=== PATIENT | female | born 1940 | race Caucasian/White ===

== ENCOUNTER 2023-02-13 06:10 | Day surgery (SDC) | payer MEDICARE ==
[2023-02-08 15:24] VITALS: BMI 23.8
[~2023-02-13 06:10] MED LIST: EPINEPHrine 0.3 MG in Ophthalmic Irrigation Solution 500 ML IRR SCH
[2023-02-13] MEDS ORDERED: EPINEPHrine 0.3 MG in Ophthalmic Irrigation Solution 500 ML IRR SCH (06:30)
[2023-02-13] MEDS ORDERED: Midazolam HCl 2 mg/2 ml Vial ONE (06:35)
[2023-02-13] MEDS ORDERED: fentaNYL 50 mcg/mL 1 mL Vial ONE ×2 (06:35)
[2023-02-13] MEDS ORDERED: PROPOFOL 20 ML ONE (06:35)
[2023-02-13] MEDS ORDERED: Bupivacaine 0.75% 10 ML VIAL ONE (07:45)
[2023-02-13] MEDS ORDERED: Indocyanine Green 25 MG/10 ML VIAL ONE (07:45)
[2023-02-13] MEDS ORDERED: Lidocaine 1% PF 5 ML VIAL ONE (07:45)
[2023-02-13] MEDS ORDERED: CEFAZOLIN 1 GM VIAL ONE (07:45)
[2023-02-13] MEDS ORDERED: PROPOFOL 200 MG/20 ML VIAL ONE (07:45)
[2023-02-13] MEDS ORDERED: Maxitrol 0.1% Opth Oint 3.5 GM TUBE ONE (07:45)
[2023-02-13] MEDS ORDERED: Triamcinolone 40 MG/ML VIAL ONE (07:45)
[2023-02-13] MEDS ORDERED: Lidocaine 4% PF 5 ML AMP ONE (07:45)
== END 2023-02-13 11:43 | disposition home or self-care (01) ==
LOC: SDC 06:10
PROVIDERS: ATTEND Ophthalmology Retina Specialist
PROC: 08T53ZZ Resection of Left Vitreous, Percutaneous Approach (ICD-10-PCS; principal; 2023-02-13)
PROC: 08NF3ZZ Release Left Retina, Percutaneous Approach (ICD-10-PCS; 2023-02-13)
DX: H35.342 Macular cyst, hole, or pseudohole, left eye (principal); Z91.041 Radiographic dye allergy status
CPT/HCPCS: 67042; J3010; J0171; J0690; J2250; J2704; J3301; J3490